=== PATIENT | male | born 2000 | race Caucasian/White ===

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

== ENCOUNTER → 2018-04-21 | Outpatient (REF) | payer OTHER | LOC: ZZSENDIN 15:52 | PROVIDERS: ATTEND Urology | DX: N42.9 Disorder of prostate, unspecified (principal); R30.0 Dysuria; R10.84 Generalized abdominal pain | CPT/HCPCS: 87088 ==

== ENCOUNTER → 2018-04-24 | Outpatient (CLI) | payer OTHER ==
--- NOTE | 2018-04-24 15:09 | RADIOLOGY IMAGING REPORT ---
FACILITY: [facility] PATIENT NAME: Yosvany Bond : 2000 MR: [id number] V: [id number] EXAM DATE: ORDERING PHYSICIAN: EARLENE SALEEM TECHNOLOG[place] [facility] [place]vany [place] : 2000 Visit/Account:[id number] Date of Sevice: 04/24/2018 KIDNEYS, PROSTATE HISTORY: Dysuria, chronic prostate pain COMPARISON: None. FINDINGS: Kidneys: Right kidney- 10.9 x 4.3 x 6.1 cm with normal parenchymal thickness and echogenicity. No ultrasound evident renal mass lesion or stone. Left kidney- 10.8 x 4.9 x 5.2 cm with normal parenchymal thickness and echogenicity. No ultrasound e vident renal mass lesion or stone. Uniform and symmetric blood flow in each kidney by Doppler ultrasound. Hydronephrosis: None. Bladder: Morphologically unremarkable. Bilateral ureteric jets visualized. There is no significant post void residual. The prostate is normal in appearance. There is normal prostatic volume. The pr ostate measures 3.4 x 1.7 x 4.1 cm.. Abdominal aorta and IVC: Patent by Doppler ultrasound. IMPRESSION: Normal renal ultrasound and normal prostatic ultrasound Report Dictated By: Stiven Mario at 04/24/2018 2:55 PM Report E-Signed By: Stiven Mario at 04/24/2018 3:06 PM WSN:[email or web address]
--- NOTE | 2018-04-24 15:10 | RADIOLOGY IMAGING REPORT ---
[place] [facility] [place] Yosvany Bond : 2000 MR: [id number] V: [id number] EXAM DATE: ORDERING PHYSICIAN: EARLENE SALEEM TECHNOLOGIST: Location: [facility] [place] Patient: Yosvany Bond : 2000 Visit/Account:[id number] Date of Sevice: 04/24/2018 KIDNEYS, PROSTATE HISTORY: Dysuria, chronic prostate pain COMPARISON: None. FINDINGS: Kidneys: Right kidney- 10.9 x 4.3 x 6.1 cm with normal parenchymal thickness and echogenicity. No ultrasound evident renal mass lesion or stone. Left kidney- 10.8 x 4.9 x 5.2 cm with normal parenchymal thickness and echogenicity. No ultrasound e vident renal mass lesion or stone. Uniform and symmetric blood flow in each kidney by Doppler ultrasound. Hydronephrosis: None. Bladder: Morphologically unremarkable. Bilateral ureteric jets visualized. There is no significant post void residual. The prostate is normal in appearance. There is normal prostatic volume. The pr ostate measures 3.4 x 1.7 x 4.1 cm.. Abdominal aorta and IVC: Patent by Doppler ultrasound. IMPRESSION: Normal renal ultrasound and normal prostatic ultrasound Report Dictated By: Stiven Mario at 04/24/2018 2:55 PM Report E-Signed By: Stiven Mario at 04/24/2018 3:06 PM WSN:[email or web address]
== END ==
LOC: US 04:56
PROVIDERS: ATTEND Urology
DX: N42.9 Disorder of prostate, unspecified (principal); R10.84 Generalized abdominal pain; R30.0 Dysuria
CPT/HCPCS: 76705